=== PATIENT | female | born 1995 | race Caucasian/White ===

== ENCOUNTER 2016-10-22 07:06 | Day surgery (SDC) | payer OTHER ==
[2016-10-20 09:38] LABS: BASOPHILS # (AUTO) 0.3 K/uL (0.00-0.22); EOSINOPHILS # (AUTO) 0.1 K/uL (0-0.4); HEMOGLOBIN 13.6 g/dL (12.0-16.0); MEAN CORPUSCULAR VOLUME 85 fL (80-94); MONOCYTES # (AUTO) 0.5 K/uL (0.8-1.0); WHITE BLOOD COUNT (AUTO) 5.9 K/uL (4.8-10.8)
[2016-10-20 09:43] LABS: BASOPHILS % (AUTO) 4.4 % (0.0-2.0); EOSINOPHILS % (AUTO) 1.8 % (0.0-4.0); HEMATOCRIT 40.5 % (36-48); LYMPHOCYTES # (AUTO) 2.1 K/uL (2.5-16.5); LYMPHOCYTES % (AUTO) 34.8 % (20.5-51.1); MEAN CORPUSCULAR HEMOGLOBIN 29 pg (27-31); MEAN CORPUSCULAR HGB CONC 34 g/dL (33-37); MONOCYTES % (AUTO) 8.3 % (1.7-9.3); NEUTROPHILS # (AUTO) 2.9 K/uL (1.8-7.7); NEUTROPHILS % (AUTO) 50.7 % (42.2-75.2); PLATELET COUNT (AUTO) 221 K/uL (140-450); RED CELL DISTRIBUTION WIDTH 12.4 % (11.6-13.7)
[2016-10-20 10:10] LABS: ANION GAP 13.3 (8-16); CARBON DIOXIDE 23.1 mmol/L (21-32); CREATININE 0.8 mg/dL (0.6-1.3); POTASSIUM 4.4 mmol/L (3.5-5.1); TOTAL BILIRUBIN 0.3 mg/dL (0.0-1.0)
[2016-10-20 10:14] LABS: APPEARANCE,URINE SL CLOUDY (CLEAR); BILIRUBIN,URINE NEGATIVE (NEGATIVE); BLOOD, URINE 3+ (NEGATIVE); COLOR,URINE YELLOW (YELLOW); LEUKOCYTE ESTERASE ,URINE 1+ (NEGATIVE); NITRITE, URINE NEGATIVE (NEGATIVE); UGLUCOSE NEGATIVE (NEGATIVE)
[2016-10-20 10:28] LABS: RBC,URINE 3-10 (FEW) /HPF (0-5)
[~2016-10-22] VITALS: Ht 160 cm; Wt 48.1 kg
[2016-10-22] MEDS ORDERED: DEP150I IM (08:53)
[2016-10-22] MEDS ORDERED: DEXAMETHASONE 4 MG/ML VIAL IVP ONE (10:30)
[2016-10-22] MEDS ORDERED: SUCCINYLCHOLINE CHLORIDE 200 MG/10 ML VIAL IV ONE (10:30)
[2016-10-22] MEDS ORDERED: ROCURONIUM 50 MG/5 ML VIAL IV ONE (10:30)
[2016-10-22] MEDS ORDERED: SEVOFLURANE 250 ML BTL INH ONE (10:30)
[2016-10-22] MEDS ORDERED: PROPOFOL 200 MG/20 ML VIAL IV ONE (10:30)
[2016-10-22] MEDS ORDERED: ONDANSETRON 4 MG/2 ML VIAL IVP ONE (10:30)
[2016-10-22] MEDS ORDERED: BUPIVACAINE-MPF 0.25% 30 ML VIAL INJ ONE (10:33)
[2016-10-22] MEDS ORDERED: METHYLENE BLUE 1% 10 MG/ML AMP ONE (10:36)
[2016-10-22] MEDS ORDERED: MIDAZOLAM 2 MG/2 ML VIAL ONE (10:46)
[2016-10-22] MEDS ORDERED: MEPERIDINE 50 MG/ML SYR ONE (10:46)
[2016-10-22] MEDS ORDERED: fentaNYL 0.05 MG/ML VIAL ONE (10:46)
[2016-10-22] MEDS ORDERED: LACTATED RINGERS 1,000 ML IV SCH ×2 (10:59→13:23)
[2016-10-22] MEDS ORDERED: ONDANSETRON 4 MG/2 ML VIAL IVP PRN (11:00)
[2016-10-22] MEDS ORDERED: diphenhydrAMINE 50 MG/ML VIAL IVP PRN (11:00)
[2016-10-22] MEDS ORDERED: MEPERIDINE 25 MG/ML SYR IVP PRN (11:00)
[2016-10-22] MEDS: HYDROmorphone 1 MG/ML AMP IVP PRN ×4 (12:55→13:25)
[2016-10-22] MEDS ORDERED: HYDROmorphone PFS 2 MG/ML SYR ONE (13:06)
[2016-10-22] MEDS ORDERED: IBUPROFEN 600 MG TAB PO PRN (13:25)
--- NOTE | 2016-10-22 18:00 | NUR ---
PT C/O BILATERAL CHEST DISCOMFORT WITH NAUSEA. PATIENT AMBULATED TO BATHROOM, VOIDED. DR. WANG NOTIFIED OF S/S OF DISCOMFORT. NO NEW ORDERS. PATIENT SITTING UP IN BED. WILL CONTINUE TO MONITOR.
--- NOTE | 2016-10-22 19:45 | NUR ---
PATIENT HAVING NAUSEA. DR. WANG AT BEDSIDE, MADE AWARE OF DISCOMFORT. NEW ORDERS RECEIVED FOR ZOFRAN IVP. NEW HOME MEDICATION FOR PATIENT. ENDORSED PLAN OF CARE TO NIGHT RN AT BEDSIDE.
[2016-10-22] MEDS ORDERED: ONDANSETRON 4 MG/2 ML VIAL IVP SCH (19:46)
[2016-10-22] MEDS ORDERED: ONDANSETRON 4 MG/2 ML VIAL ONE (20:02)
== END 2016-10-22 21:10 | disposition home or self-care (01) ==
LOC: MDS 07:06 → MMU 07:07 → MDS 21:10
PROVIDERS: ATTEND Obstetrics & Gynecology
DX: Q51.2 Other doubling of uterus (principal); N70.11 Chronic salpingitis; Z98.890 Other specified postprocedural states
CPT/HCPCS: 36415; 49321; 80053; 81001; 84702; 85025; 87086; 88305; J0330; J0690; J1050; J1100; J1170; J2175; J2250; J2405; J2704; J3010; J3490; J7060; J7120; Q9968